=== PATIENT | male | born 1990 ===

== ENCOUNTER 2016-11-20 21:06 | Observation (INO) | payer SELFPAY ==
[2016-11-20 21:13] VITALS: BP 132/79; RESP 16; O2SAT 100
[2016-11-20] MEDS ORDERED: Sodium Chloride 0.9% 1,000 ML IV SCH (22:00)
--- NOTE | 2016-11-20 22:03 | ED PDOC ---
HPI: Headache Time Seen by Provider: 11/20/16 21:21 Chief Complaint (Nursing): Headache Chief Complaint (Provider): Headache, back pain History Per: Patient History/Exam Limitations: no limitations Onset/Duration Of Symptoms: Hrs (1-2) Current Symptoms Are (Timing): Still Present Severity: Moderate Quality: Dull Preceeding Symptoms: None Associated Symptoms: Photophobia (mildly improves w light) Additional Complaint(s): 26 yo M w/o PMHx presents to ER c/o diffuse back pain and unrelated headache for couple of hours. He states the pain along with subjective fevers and chills prompted him to head to ER. Denies aura, spots, known triggers, and previous photophobia but headache did mildly improve when lights were turned off. Denies recent travel. Denies urinary incontinence/retention, bowel incontinence/ retention, or foot drop. Also denies n/v/d, constipation, throat pain, chest pain, SOB, dyspnea, cough, abdominal pain, hematuria, dysuria, penile discharge , or melena. Past Medical History Reviewed: Historical Data, Nursing Documentation, Vital Signs Vital Signs: Last Vital Signs Temp 101.7 F H 11/20/16 21:09 Pulse 127 H 11/20/16 21:09 Resp 16 11/20/16 21:09 BP 132/79 11/20/16 21:09 Pulse Ox 100 11/20/16 21:09 - Medical History PMH: Denies: Chronic Kidney Disease - Family History Family History: States: Unknown Family Hx - Home Medications Home Medications: Ambulatory Orders Medication Instructions Recorded Ibuprofen 600 mg PO Q6H PRN #15 tab 11/04/14 - Allergies Allergies/Adverse Reactions: Allergies Allergy/AdvReac Type Severity Reaction Status Date / Time No Known Allergies Allergy Verified 06/14/14 01:20 Review of Systems ROS Statement: Except As Marked, All Systems Reviewed And Found Negative (see HPI) Physical Exam - Physical Exam Appears: Positive for: Non-toxic, No Acute Distress Head Exam: Positive for: ATRAUMATIC, NORMOCEPHALIC Skin: Positive for: Normal Color, Warm, Dry. Negative for: Diaphoresis Eye Exam: Positive for: Normal appearance, EOMI, PERRL ENT: Positive for: Normal ENT Inspection Neck: Positive for: Normal, Painless ROM, Supple Cardiovascular/Chest: Positive for: Regular Rate, Rhythm, Chest Non Tender. Negative for: Edema, Murmur Respiratory: Positive for: Normal Breath Sounds Gastrointestinal/Abdominal: Positive for: Normal Exam, Bowel Sounds, Soft. Negative for: Tenderness, Distended, Guarding, Rebound Back: Negative for: L CVA Tenderness, R CVA Tenderness Extremity: Negative for: Pedal Edema, Calf Tenderness Neurologic/Psych: Positive for: Alert, emergency nurse II-XII, Oriented - Laboratory Results Result Diagrams: 11/20/16 22:56 11/20/16 22:56 - ECG O2 Sat by Pulse Oximetry: 100 - Progress ED Course And Treament: 26 yo M w/o PMHx presents to ER c/o diffuse back pain and unrelated headache for couple of hours -CBC -CMP -PT/INR/PTT -VBG -CXR -UA -BCx -UCx -NS 1L @ 999mL/hr -Ibuprofen 600mg PO x1 -CT A/P Update 0230: -CT A/P: Possible mesenteric adenitis. Clinical correlation is needed. Incidental/non-acute findings are described above. -NS and Ibuprofen greatly improved pain. -Will discharge patient home Disposition - Clinical Impression Clinical Impression: Muscle spasms of neck - Disposition Disposition: Routine/Home Disposition Time: 02:41 Condition: GOOD
[2016-11-20 22:14] LABS: RBC URINE 2 /hpf (0-3); URINE BACTERIA RARE (<OCC); URINE BILIRUBIN NEGATIVE (NEGATIVE); URINE BLOOD SMALL (NEGATIVE); URINE COLOR YELLOW (YELLOW); URINE GLUCOSE (UA) NEG (Normal); URINE KETONE NEGATIVE (NEGATIVE); URINE LEUKOCYTE ESTERASE NEG Leu/uL (Negative); URINE PROTEIN NEGATIVE (NEGATIVE); URINE UROBILINOGEN 0.2-1.0 mg/dL (0.2-1.0); WBC URINE 1 /hpf (0-5)
[2016-11-20 23:12] LABS: VENOUS BLOOD GAS BASE EXCESS 1.9 mmol/L (0.0-2.0); VENOUS BLOOD GAS PCO2 41 mmHg (40-60); VENOUS BLOOD PH 7.42 (7.32-7.43)
[2016-11-20 23:12] LABS: BASO % 0.3 % (0.0-2.0); EOS % 0.2 % (0.0-4.0); HEMATOCRIT 42.3 % (35.0-51.0); LYMPH # 0.6 K/uL (1.0-4.3); LYMPH % 5.9 % (20.0-40.0); MEAN CELL VOLUME 87.3 fl (80.0-94.0); MEAN CORPUSCULAR HEMOGLOBIN 30.1 pg (27.0-31.0); MEAN CORPUSCULAR HGB CONC 34.5 g/dL (33.0-37.0); MEAN PLATELET VOLUME 8.1 fl (7.2-11.7); MONO # 1.1 K/uL (0.0-0.8); MONO % 10.5 % (0.0-10.0); NEUT # 8.3 K/uL (1.8-7.0); NEUT % 83.1 % (50.0-75.0); PLATELET COUNT 186 K/uL (130-400); RED CELL DISTRIBUTION WIDTH 12.3 % (11.5-14.5)
[2016-11-20 23:27] LABS: ALB/GLOB RATIO 1.4 (1.0-2.1); ALKALINE PHOSPHATASE 74 U/L (38-126); ALT/SGPT 58 U/L (21-72); AST/SGOT 32 U/L (17-59); BILIRUBIN,TOTAL 0.8 mg/dl (0.2-1.3); BLOOD UREA NITROGEN 10 mg/dl (9-20); CALCIUM 9.6 mg/dL (8.4-10.2); CARBON DIOXIDE 23 mmol/L (22-30); CHLORIDE 100 mmol/L (98-107); GFR AFRICAN-AMERICAN > 60; GLUCOSE,RANDOM 109 mg/dL (75-110); POTASSIUM 3.5 MMOL/L (3.6-5.0); SODIUM 138 mmol/l (132-148); TOTAL PROTEIN 7.9 G/DL (6.3-8.2)
[2016-11-20 23:28] LABS: PARTIAL THROMBOPLASTIN TIME 31.6 Seconds (25.6-37.1)
[2016-11-20 23:29] LABS: NEUTROPHIL 84 % (42-75); TOTAL CELLS COUNTED 100
[2016-11-20] MEDS ORDERED: Iohexol 240 (50 ml) PO ONE (23:50)
[2016-11-20] MEDS ORDERED: Iohexol 240 (50 ml) ONE (23:53)
[2016-11-21 01:44] VITALS: TEMP 98.5
--- NOTE | 2016-11-21 02:32 | CT ---
EXAM: CT Abdomen and Pelvis With Intravenous Contrast CLINICAL HISTORY: 26 years old, male; Pain; Abdominal pain; Generalized; Additional info: Back pain, HX nonoperative appendicitis, sylvester TECHNIQUE: Axial computed tomography images of the abdomen and pelvis with intravenous contrast. All CT scans at this facility use one or more dose reduction techniques, viz.: automated exposure control; ma/kV adjustment per patient size (including targeted exams where dose is matched to indication; i.e. head); or iterative reconstruction technique. Coronal and sagittal reformatted images were created and reviewed. CONTRAST: 0 mL of PO administered intravenously. COMPARISON: No relevant prior studies available. FINDINGS: Limitations: Lack of intravenous contrast. Lower thorax: Minimal atelectasis. ABDOMEN: Liver: Unremarkable. No mass. Gallbladder and bile ducts: Cholecystectomy. No ductal dilation. Pancreas: No ductal dilation. No mass. Spleen: No splenomegaly. Adrenals: No mass. Kidneys and ureters: No renal calculi. No hydronephrosis. Stomach and bowel: No definite mural thickening. No obstruction. Appendix: Normal caliber. No inflammation. PELVIS: Bladder: Unremarkable. Reproductive: Unremarkable as visualized. ABDOMEN and PELVIS: Intraperitoneal space: No significant fluid collection. No free air. Bones/joints: No acute fracture. Soft tissues: Tiny umbilical hernia containing fat. Vasculature: Unremarkable. No aneurysm. Lymph nodes: Several subcentimeter short axis mesenteric lymph nodes, nonspecific. IMPRESSION: 1. Possible mesenteric adenitis. Clinical correlation is needed. 2. Incidental/non-acute findings are described above.
[2016-11-21 03:10] VITALS: PULSE 88
--- NOTE | 2016-11-21 14:07 | RAD ---
HISTORY: fever COMPARISON: This study was read in conjunction with subsequent CT scan abdomen pelvis 11/21/2016 which also image both lung bases FINDINGS: LUNGS: Poor inspiration with low lung volumes, crowded bronchovascular markings and mild bibasilar atelectasis. PLEURA: No significant pleural effusion identified, no pneumothorax apparent. CARDIOVASCULAR: The heart is upper limits of normal in size felt to be secondary to poor inspiration OSSEOUS STRUCTURES: No significant abnormalities. VISUALIZED UPPER ABDOMEN: Metallic clips vaguely seen in the right upper quadrant of the abdomen consistent with prior cholecystectomy. OTHER FINDINGS: None. IMPRESSION: Poor inspiration with low lung volumes, crowded bronchovascular markings and mild bibasilar atelectasis.
== END 2016-11-21 03:10 | disposition home or self-care (01) ==
LOC: H.ER 21:06 → H.EROBSV 23:50
PROVIDERS: ADMIT Emergency Medicine; ATTEND Emergency Medicine
DX: M54.9 Dorsalgia, unspecified (principal); R51 Headache; I88.0 Nonspecific mesenteric lymphadenitis
CPT/HCPCS: 71010; 74176; 80053; 81003; 82803; 85025; 85610; 85730; 87040; 87086; 87804; 99285; G0378; J7040; Q9966